=== PATIENT | male | born 1945 | race Caucasian/White ===

== ENCOUNTER 2022-08-21 01:47 | Observation (INO) | payer OTHER, SELFPAY ==
[2022-08-21] VITALS (36 sets, daily range): BP systolic 92–143; BP diastolic 40–78; PULSE 74–101; RESP 2–95; TEMP 36.7–37.4; O2SAT 91–99; BMI 27.1; BMI 28.6; BMI 28.9
--- NOTE | 2022-08-21 02:03 | ED.CHESTPAI1 ---
HPI - Chest Pain General Chief Complaint: Chest Pain Stated Complaint: CHEST PAIN, N&V Time Seen by Provider: 08/21/22 01:58 Source: patient Mode of arrival: ambulance Limitations: no limitations History of Present Illness HPI narrative: arrives complaining of chest pain and nausea/vomiting that started 2 hours ago. Describes chest pain as tightness. No known history of heart disease. Denies similar episodes of chest pain. States when he called 911 he was also short of breath. Related Data Home Medications Medication Instructions Recorded Confirmed atorvastatin 20 mg tablet 20 mg PO ONCE 08/21/22 08/21/22 celecoxib 200 mg capsule 200 mg PO Q24H 08/21/22 08/21/22 fluticasone 250 mcg-salmeterol 50 1 inh inhalation Q12H 08/21/22 08/21/22 mcg/dose blistr powdr for inhalation (Advair Diskus) gabapentin 600 mg tablet 600 mg PO Q8H 08/21/22 08/21/22 gabapentin 800 mg tablet 800 mg PO .Q8HR 08/21/22 08/21/22 losartan 100 1 tab PO ONCE 08/21/22 08/21/22 mg-hydrochlorothiazide 25 mg tablet metoprolol succinate 100 mg 100 mg PO QDAY 08/21/22 08/21/22 tablet,extended release 24 hr montelukast 10 mg tablet 10 mg PO QDAY 08/21/22 08/21/22 omeprazole 40 mg capsule,delayed 40 mg PO QDAY 08/21/22 08/21/22 release Allergies Allergy/AdvReac Type Severity Reaction Status Date / Time Penicillins Allergy Unknown Verified 08/21/22 01:54 Review of Systems ROS Status of ROS 10 or more systems reviewed and unremarkable except as noted in history and below Cardiovascular Reports: chest pain Gastrointestinal Reports: nausea and vomiting PFSH PFSH Social History Smoking status: Former smoker Exam Constitutional Vital Signs - 24 hr 08/21/22 01:50 08/21/22 01:53 08/21/22 05:54 Temperature 99.3 F Pulse Rate 100 H 92 H Pulse Rate [Monitor] 101 H Respiratory Rate 18 22 19 Blood Pressure 143/76 H 92/70 Blood Pressure [Right Arm] 143/76 H Pulse Oximetry 99 Oxygen Delivery Method Room Air Common normals: no apparent distress, average body habitus and oriented x3 HENMT Common normals: normocephalic and head/scalp atraumatic Eye Common normals: EOMs intact bilaterally Respiratory Common normals: normal respiratory effort, no retractions, no use of accessory muscles and clear to auscultation bilaterally Cardio Common normals: regular rate, regular rhythm, S1 normal heart sound and S2 normal heart sound GI Common normals: Normal to inspection, nondistended, normoactive bowel sounds present, soft to palpation and non-tender Extremity Common normals: normal to inspection, full ROM and normal capillary refill Neuro Common normals: oriented x3 and gait normal Psych Appearance: grossly normal Course Vital Signs Vital signs: Vital Signs Temperature 99.3 F 08/21/22 01:50 Pulse Rate 101 H 08/21/22 01:50 Respiratory Rate 18 08/21/22 01:50 Blood Pressure 143/76 H 08/21/22 01:50 Pulse Oximetry 99 08/21/22 01:50 Oxygen Delivery Method Room Air 08/21/22 01:50 Temperature 99.3 F 08/21/22 01:50 Pulse Rate 92 H 08/21/22 05:54 Respiratory Rate 19 08/21/22 05:54 Blood Pressure 92/70 08/21/22 05:54 Pulse Oximetry 99 08/21/22 01:50 Oxygen Delivery Method Room Air 08/21/22 01:50 MDM - Chest Pain MDM Narrative Medical decision making narrative: 76 yo male hypertensive, hyperlipidemia presents after acute onset of chest tightness,nausea and vomiting and shortness of breath. Arrived via Squad. symptoms started about 2 hours prior to coming to the department. Now that he is here they have abated. No known history of heart disease. EKG NSR without acute changes. Troponin neg. D-dimer pending. CBC and BMP WNL. Cxray with pulmonary vascular congestion. Discussed with Dr Nielsen and patient accepted for admission Lab Data Labs: Lab Results 08/21/22 Range/Units 01:58 WBC 8.4 (4.0-11.0) 10^3/uL RBC 4.74 (4.70-6.10) 10^6/uL Hgb 14.7 (14.0-18.0) g/dL Hct 44.6 (42.0-54.0) % MCV 94.1 H (80.0-94.0) fL MCH 31.0 (25.9-34.0) pg MCHC 33.0 (29.9-35.2) g/dL RDW 14.0 (11.0-15.0) % Plt Count 310 (150-450) 10^3/uL MPV 9.8 (9.5-13.5) fL Neut % (Auto) 93.4 H (43.0-75.0) % Lymph % (Auto) 4.3 L (20.5-60.0) % [place] % (Auto) 1.4 L (1.7-12.0) % Eos % (Auto) 0.1 L (0.9-7.0) % Baso % (Auto) 0.4 (0.2-2.0) % Neut # (Auto) 7.9 H (1.4-6.5) 10^3/uL Lymph # (Auto) 0.4 L (1.2-3.8) 10^3/uL [place] # (Auto) 0.1 L (0.3-0.8) 10^3/uL Eos # (Auto) 0.0 (0.0-0.7) 10^3/uL Baso # (Auto) 0.0 (0.0-0.1) 10^3/uL Abs Immat Gran (auto) 0.03 (0.00-0.03) 10^3/uL Imm/Tot Granulo (auto) 0.4 (0.0-0.5) % Sodium 141 (136-145) mmol/L Potassium 4.1 (3.5-5.1) mmol/L Chloride 104 (98-107) mmol/L Carbon Dioxide 29.1 (21.0-32.0) mmol/L Anion Gap 12.0 BUN 21.0 H (7.0-18.0) mg/dL Creatinine 1.11 (0.70-1.30) mg/dL Est GFR ( Amer) >60 (>=60) Est GFR (Non-Af Amer) >60 (>=60) BUN/Creatinine Ratio 18.9 Glucose 129 H (74-106) mg/dL Calcium 9.1 (8.5-10.1) mg/dL Troponin I High Sens <4.0 L (4.0-76.1) pg/mL NT-Pro-B Natriuret Pep 148.0 (<=1800.0) pg/mL Discharge Plan Discharge Chief Complaint: Chest Pain Clinical Impression: Congestive heart failure, Chest pain Patient Disposition: Admitted as Observation
--- NOTE | 2022-08-21 02:05 | XR_ITS ---
The [address] [address] Patient Name: LUIS ANTHONY MRN: [id number] date: 1945 Sex: M Assigned Patient Location: ER Current Patient Location: ED.MAIN Accession/Order Number: [id number] Exam Date: 08/21/2022 02:10 Report Date: 08/21/2022 04:48 At the request of: JAMIR DASH Procedure: XR chest 1V EXAM: XR chest 1V 08/21/2022 2:10 AM EDT OH001 CLINICAL STATEMENT: chest pain COMPARISON: No prior studies are available at the time of dictation. TECHNIQUE: Single AP radiograph of the chest is submitted. FINDINGS: There is pulmonary vascular congestion with left lower lobe atelectasis and/or airspace disease. Enlarged cardiac silhouette. Decreased lung volume. The costophrenic recesses are sharp. No pneumothorax. The bony elements are unremarkable. IMPRESSION: Pulmonary vascular congestion with left lower lobe atelectasis and/or airspace disease. Enlarged cardiac silhouette. Decreased lung volume. Electronically authenticated by: MICHELLE AZAR Date: 08/21/2022 04:48
--- NOTE | 2022-08-21 02:05 | ECG_ITS ---
The [facility] Test Date: 2022-08-21 Pat Name: LUIS ANTHONY Department: Room: - Gender: Male Environmental Compliance Technician: : 1945 Requested By: DOMO BARRIENTOS Order Number: [id number] Reading MD: DOMO BARRIENTOS Measurements Intervals [place] Rate: 91 P: 56 NH: 192 QRS: 30 QRSD: 92 T: 51 QT: 322 QTc: 371 Interpretive Statements 1100 Sinus rhythm 9110 normal ECG No previous ECG available for comparison Electronically Signed On 08-21-2022 6:34:56 EDT by DOMO BARRIENTOS
--- NOTE | 2022-08-21 02:12 | PC.NURSE ---
IV started per squad, present on admission
[2022-08-21 02:18] LABS: Basophils Percent Auto 0.4 % (0.2-2.0); Eosinophils Percent Auto 0.1 % (0.9-7.0); Hematocrit 44.6 % (42.0-54.0); Hemoglobin 14.7 g/dL (14.0-18.0); Immature Granulocytes Abs Auto 0.03 10^3/uL (0.00-0.03); Immature Granulocytes Pct Auto 0.4 % (0.0-0.5); Lymphocytes Absolute Auto 0.4 10^3/uL (1.2-3.8); Lymphocytes Percent Auto 4.3 % (20.5-60.0); Mean Corpuscular Volume 94.1 fL (80.0-94.0); Mean Platelet Volume 9.8 fL (9.5-13.5); Monocytes Absolute Auto 0.1 10^3/uL (0.3-0.8); Monocytes Percent Auto 1.4 % (1.7-12.0); Neutrophils Absolute Auto 7.9 10^3/uL (1.4-6.5); Neutrophils Percent Auto 93.4 % (43.0-75.0); Platelet Count 310 10^3/uL (150-450); Red Blood Count 4.74 10^6/uL (4.70-6.10); White Blood Count 8.4 10^3/uL (4.0-11.0)
[2022-08-21 03:03] LABS: BUN Creatinine Ratio 18.9; Calcium 9.1 mg/dL (8.5-10.1); Carbon Dioxide 29.1 mmol/L (21.0-32.0); Chloride 104 mmol/L (98-107); Estimated GFR (African America >60 (>=60); Estimated GFR (Non-African Ame >60 (>=60); Glucose 129 mg/dL (74-106); Potassium 4.1 mmol/L (3.5-5.1); Sodium 141 mmol/L (136-145); Troponin I High Sensitivity <4.0 pg/mL (4.0-76.1)
--- NOTE | 2022-08-21 07:37 | CA_ITS ---
Patient Name Site Name LUIS ANTHONY The [facility] Account No Medical Record Number Age Sex Date Time [id number] [facility]:[id number] M 08/21/2022 11:26 At the Request Of SHAIKH VINCE ECHOCARDIOGRAM REPORT PROCEDURE: CA ECHO DOPPLER COMPLETE INDICATIONS: CHEST PAIN COMPARISON: None. DESCRIPTION: COMPLETE ECHOCARDIOGRAM Real-time transthoracic echocardiography with 2D, M-mode, spectral and color flow Doppler performed. QUALITY: Technical quality was good. LEFT VENTRICLE: Normal chamber size. Thickened septal wall. Global left ventricular systolic function is normal. LV EF: Estimated left ventricular ejection fraction is 65%. DIASTOLIC: Normal diastolic function. ATRIAL SEPTUM: LEFT ATRIUM: Normal chamber size. RIGHT ATRIUM: Moderate dilatation. RIGHT VENTRICLE: Moderate dilatation. Normal right ventricular systolic function. TRICUSPID VALVE: Normal mobility and thickness. No stenosis with moderate regurgitation. No evidence of pulmonary hypertension. RVSP 31 mmHg MITRAL VALVE: Normal mobility and thickness. No evidence of mitral valve stenosis. There is no mitral annular calcification. Trivial mitral regurgitation. AORTIC VALVE: Normal trileaflet appearance. Thickened aortic valve. Normal leaflet mobility. No evidence of aortic valve stenosis. No aortic regurgitation. AORTIC ROOT: Normal diameter and appearance. PULMONIC VALVE: Normal thickness and mobility. No stenosis. Trivial regurgitation. PERICARDIUM: No evidence of pericardial effusion. IVC: Collapses with inspirations. Normal size. PLEURA: CONCLUSION: 1. Normal left ventricular systolic function. LVEF is 65%. 2. Moderately dilated right ventricle with normal systolic function. 3. Moderate right atrial dilatation. 4. Moderate tricuspid regurgitation. 5. Normal right-sided pressures. Adult Echocardiography Procedure Report Left Ventricle LVEDD (3.7 - 5.6 cm): 4.39 cm LVESD (2.2 - 4.0 cm): 2.86 cm LVIVS thickness (0.6 - 1.2 cm): 1.26 cm LVPW thickness (0.5 - 1.0 cm): 9.63 mm LVOT Max Gradient: 7 mm[Hg] Peak Velocity (LVOT): 128.00 cm/s Mean Velocity (LVOT): 85.90 cm/s LVOT Diameter 2.10 cm Left Ventricular Ejection Fraction: 65% Left Atrium LA Volume Index (2D A2C): 08220 mm3 Left Atrium Systolic Dimension: 4.00 cm Mitral Valve MV E to A Ratio: 1 Mitral Valve A-Wave Peak Velocity: 90.80 cm/s Mitral Valve E-Wave Peak Velocity: 91.80 cm/s Right Ventricle Aorta AO Root Diam: 3.30 cm Aortic Valve AoV Area (Peak Andrés): 3.03 cm2 AoV Area (VTI): 3.24 cm2 Peak Velocity(Antegrade Flow): 146.00 cm/s Peak Gradient(Antegrade Flow): 9 mm[Hg] Mean Velocity(Antegrade Flow): 89.30 cm/s Mean Gradient(Antegrade Flow): 4 mm[Hg] Velocity Time Integral: 29.30 cm Tricuspid Valve Peak Velocity (Regurgitant Flow): 265.00 cm/s Peak Velocity: 66.10 cm/s Pulmonic Valve Peak Velocity: 86.90 cm/s, 85.50 cm/s Peak Gradient: 3 mm[Hg] Right Atrium Dictated by: Yoseph Lewis M.D. on 08/21/2022 at 18:50 Approved by: Yoseph Lewis M.D. on 08/21/2022 at 18:56
--- NOTE | 2022-08-21 07:41 | CT_ITS ---
[address] [address] Patient Name: LUIS ANTHONY MRN: [id number] date: 1945 Sex: M Assigned Patient Location: ICU Current Patient Location: ICU Accession/Order Number: [id number] Exam Date: 08/21/2022 08:15 Report Date: 08/21/2022 09:20 At the request of: SHAIKH VINCE Procedure: CT angio chest EXAMINATION: CT angio chest HISTORY: SOB, elevated d dimer , chest pain, nausea and vomiting COMPARISON: No relevant comparison available. TECHNIQUE: Multi-planar CT images were created with IV contrast. Axial, Coronal, and Sagittal images. Dose reduction techniques were achieved by using automated exposure control and/or adjustment of mA and/or kV according to patient size and/or use of iterative reconstruction technique. 3-D reconstruction was performed on a separate workstation. FINDINGS: VASCULATURE: No pulmonary embolism or abnormal opacity. LUNGS: Mild emphysematous changes. No acute infiltrates. PLEURA: No mass, effusion, or pneumothorax. LUCAS: No mass or adenopathy. MEDIASTINUM: No mass or adenopathy. CARDIAC: No enlargement, pericardial effusion, or pericardial thickening. AORTA: No aneurysm or dissection. CHEST WALL: No mass or axillary adenopathy. BONES: No bone lesion or fracture. LIMITED ABDOMEN: Bilateral renal cysts. Sludge versus stones within gallbladder. OTHER: Negative. IMPRESSION: 1. No pulmonary embolism. 2. Mild emphysematous changes. No appreciable acute infiltrates. 3. Cholelithiasis. Electronically authenticated by: CORBIN ROWE Date: 08/21/2022 09:20
[2022-08-21] MEDS: ACETAMINOPHEN 325 MG TABLET PO (09:06)
[2022-08-21] MEDS: ATORVASTATIN CALCIUM 20 MG TABLET PO (09:06)
[2022-08-21 09:07] LABS: Troponin I High Sensitivity 10.7 pg/mL (4.0-76.1)
[2022-08-21] MEDS: OMEPRAZOLE 40 MG CAPSULE.DR PO (09:07)
[2022-08-21] MEDS: CELECOXIB 200 MG CAPSULE PO (09:07)
[2022-08-21] MEDS: METOPROLOL SUCCINATE 100 MG TAB.ER.24H PO (09:07)
[2022-08-21] MEDS: ENOXAPARIN SODIUM 40 MG/0.4 ML SYRINGE SUBQ (09:07)
[2022-08-21] MEDS: MONTELUKAST SODIUM 10 MG TABLET PO (09:07)
[2022-08-21] MEDS: GABAPENTIN 300 MG CAPSULE 600 MG PO ×2 (09:17→17:31)
[2022-08-21] MEDS: HYDROCHLOROTHIAZIDE 25 MG TABLET PO (09:17)
[2022-08-21] MEDS: LOSARTAN POTASSIUM 50 MG TABLET 100 MG PO (09:18)
[2022-08-21] MEDS: LACTATED RINGER'S SOLUTION 1,000 ML 100 ML IV (10:23)
[2022-08-21] MEDS: BUDESONIDE 0.5 MG/2 ML AMPULE NEB IH ×2 (11:53→20:02)
[2022-08-21] MEDS: ALBUTEROL SULFATE 2.5 MG/3 ML VIAL NEB IH ×3 (11:53→20:03)
--- NOTE | 2022-08-21 12:23 | CM.NOTE ---
Rounds made with Dr. Nielsen, discussed with pt about having stress test and echo today. Pt verbalizes understanding
--- NOTE | 2022-08-21 12:58 | PM.HP ---
H&P: HPI History of Present Illness Chief complaint: CHEST PAIN, N&V Narrative: 76 y o presented yesterday with acute onset chest pressure, mid sternal, associated with SOB, diaphoresis, dizziness and nausea with 2-3 episodes of vomiting while driving for work. He stopped his vehicle and called EMS because of the severity of his pain. He was evaluated in ED and so far his w/u is unremarkable. His pain resolved in ED after initial treatment. He had one episode of similar pain but of less severity that resolved on its own. He reports intermittent chest pain over a period of past few months that is sporadic and has no aggravating or alleviating factors. No relationship to exertion or food intake. No prior hx of CAD or testing for for CAD. He has hx of HTN, is a prediabetic and HLD. He is a fomer smoker - quit 20 years ago and has no sig Fhx of CAD. He also reports hx of GERD and surgery for it. He has noticed metallic taste in his mouth lately. Denies abdominal pain, change in bowel habits. He is currently CP free. Review of Systems ROS Status of ROS 10 or more systems reviewed and unremarkable except as noted in history and below [facility] Medical History (Updated 08/21/22 @ 13:14 by Shaikh Morales MD) Social History Smoking status: Former smoker Meds Home Medications and Allergies Home Medications Medication Instructions Recorded Confirmed Type atorvastatin 20 mg tablet 20 mg PO ONCE 08/21/22 08/21/22 History celecoxib 200 mg capsule 200 mg PO Q24H 08/21/22 08/21/22 History fluticasone 250 mcg-salmeterol 50 1 inh inhalation Q12H 08/21/22 08/21/22 History mcg/dose blistr powdr for inhalation (Advair Diskus) gabapentin 600 mg tablet 600 mg PO Q8H 08/21/22 08/21/22 History gabapentin 800 mg tablet 800 mg PO .Q8HR 08/21/22 08/21/22 History losartan 100 1 tab PO ONCE 08/21/22 08/21/22 History mg-hydrochlorothiazide 25 mg tablet metoprolol succinate 100 mg 100 mg PO QDAY 08/21/22 08/21/22 History tablet,extended release 24 hr montelukast 10 mg tablet 10 mg PO QDAY 08/21/22 08/21/22 History omeprazole 40 mg capsule,delayed 40 mg PO QDAY 08/21/22 08/21/22 History release Allergies Allergy/AdvReac Type Severity Reaction Status Date / Time Penicillins Allergy Unknown Verified 08/21/22 01:54 Exam Constitutional Vital Signs - 24 hr 08/21/22 01:50 08/21/22 01:53 08/21/22 05:54 Temperature 99.3 F Pulse Rate 100 H 92 H Pulse Rate [Monitor] 101 H Respiratory Rate 18 22 19 Blood Pressure 143/76 H 92/70 Blood Pressure [Right Arm] 143/76 H Pulse Oximetry 99 Oxygen Delivery Method Room Air 08/21/22 05:54 08/21/22 06:34 08/21/22 07:23 Temperature Pulse Rate 95 H 96 H Pulse Rate [Monitor] 84 Respiratory Rate 19 13 16 Blood Pressure 92/70 104/66 Blood Pressure [Right Arm] Pulse Oximetry 92 L 95 Oxygen Delivery Method Room Air 08/21/22 07:37 08/21/22 07:37 08/21/22 07:06 Temperature 98.1 F 98.2 F Pulse Rate 84 84 Pulse Rate [Monitor] Respiratory Rate 16 Blood Pressure Blood Pressure [Right Arm] 122/71 H Pulse Oximetry 95 Oxygen Delivery Method Room Air 08/21/22 06:43 08/21/22 10:24 08/21/22 10:25 Temperature Pulse Rate Pulse Rate [Monitor] Respiratory Rate Blood Pressure 122/71 H 99/59 L Blood Pressure [Right Arm] Pulse Oximetry 94 L 91 L 97 Oxygen Delivery Method 08/21/22 10:25 08/21/22 10:25 08/21/22 11:23 Temperature Pulse Rate Pulse Rate [Monitor] Respiratory Rate 16 Blood Pressure 99/59 L Blood Pressure [Right Arm] Pulse Oximetry 93 L 91 L Oxygen Delivery Method 08/21/22 11:59 Temperature Pulse Rate Pulse Rate [Monitor] Respiratory Rate Blood Pressure Blood Pressure [Right Arm] Pulse Oximetry 92 L Oxygen Delivery Method Room Air Documenting provider has reviewed patient's vital signs: yes Common normals: no apparent distress General appearance: cooperative, comfortable and well kempt [facility] Common normals: normocephalic and head/scalp atraumatic Eye Common normals: conjunctivae normal and no scleral icterus Chest Common normals: inspection of chest normal and palpation of chest normal Respiratory Common normals: normal respiratory effort, no use of accessory muscles and clear to auscultation bilaterally GI Common normals: Normal to inspection, nondistended, normoactive bowel sounds present, non-tender and no hepatosplenomegaly Extremity Common normals: normal to inspection and full ROM Neuro Common normals: oriented x3, moves all extremities, no focal motor deficits and no sensory deficits noted Psych Common normals: mental status grossly normal, thought process normal, cooperative, denies homicidal ideation and denies suicidal ideation Results Labs Labs: Short CBC 08/21/22 Range/Units 01:58 WBC 8.4 (4.0-11.0) 10^3/uL Hgb 14.7 (14.0-18.0) g/dL Hct 44.6 (42.0-54.0) % Plt Count 310 (150-450) 10^3/uL BMP 08/21/22 01:58 Sodium 141 Potassium 4.1 Chloride 104 Carbon Dioxide 29.1 BUN 21.0 H Creatinine 1.11 Glucose 129 H Calcium 9.1 Assessment and Plan Assessment and Plan (1) Chest pain: Assessment and Plan: Intermittent, ongoing for a few weeks now. Non exertional, no relationship to food. Normal EKG, Normal Trops. HEART score - 4 2D ECHO ordered to assess cardiac structure Because of his risk factors, clinical presentation - will order Nuclear stress test for the patient. Patient is unable to exercise on a treadmill due to back pain and hence won't be able to achieve target HR. (2) HTN (hypertension): Assessment and Plan: Too tightly controlled. C/w Lopressor and Losartan. D/c HCTZ as too tightly controlled Qualifiers: Hypertension type: primary hypertension Qualified Code(s): I10 - Essential (primary) hypertension (3) HLD (hyperlipidemia): Assessment and Plan: c/w statin. Check Lipid panel Qualifiers: Hyperlipidemia type: unspecified Qualified Code(s): E78.5 - Hyperlipidemia, unspecified (4) Chronic low back pain: Assessment and Plan: Chronic, unchanged. on Gabapentin for it Qualifiers: Back pain laterality: bilateral Sciatica presence: with sciatica Sciatica laterality: sciatica laterality unspecified Qualified Code(s): M54.40 - Lumbago with sciatica, unspecified side; G89.29 - Other chronic pain (5) Prediabetes: Assessment and Plan: Check A1C (6) Emphysema lung: Assessment and Plan: On symbicort as outpatient. [place]abble. No active wheezing currently Qualifiers: Emphysema type: unspecified Qualified Code(s): J43.9 - Emphysema, unspecified (7) Cholelithiasis: Assessment and Plan: Noted on CTA chest. No abdominal pain. Likely incidental and can be followed up outpatient (8) GERD (gastroesophageal reflux disease): Assessment and Plan: On omeprazole and possibly contributing to his symptoms if his presentation is not due to underlying CAD. Outpatient GI w/u
--- NOTE | 2022-08-21 13:00 | NM_ITS ---
Patient: LUIS ANTHONY Exam Date: 08/21/2022 : 1945 Gender:M Ordering : SHAIKH Fran CLARKE . Admission #: [id number] Family : Order #: [id number] CLICK HERE TO VIEW EXAM RADIOLOGY REPORT PROCEDURE: NM ENID PERF SPECT REST STR COMPARISON: None. INDICATIONS: Chest pain TECHNIQUE: Exam Description: Stress/Rest one day protocol gated SPECT Rest Imagin.1 mCi Tc-99m Cardiolite IV on 08/21/2022 Stress Imaging 30.8 mCi Tc-99m Cardiolite IV on 08/21/2022 Exercise Protocol: 0.4 mg Lexiscan given IV Heart Rate (bpm): Rest: 79 Max: 93 PMHR: 64 Blood Pressure: Rest: 112/66 Max: 116/68 Symptoms: Rest and peak stress ECG findings were normal and the exercise portion of the study was normal per attending physician Dr. Mead . For more details please see separate cardiac stress test report. FINDINGS: QUALITY OF STUDY: Excellent. PERFUSION DEFECT: Slightly decreased perfusion inferior and septal wall; stable during rest and stress imaging and suspected to be secondary to liver/diaphragm attenuation artifact. WALL MOTION: Normal. LV SIZE: Normal. 79 mL. TID / TCD: Upper limits of normal; 1.2 LVEF: Normal. Calculated EF 75%. SUMMARY: Myocardial perfusion imaging study is NORMAL. CONCLUSION: 1. No acute or reversible ischemia. 2. Normal wall motion, left ventricle volume, and ejection fraction. Dictated by: Chidi Law M.D. on 08/22/2022 at 09:43 Approved by: Chidi Law M.D. on 08/22/2022 at 09:54
[2022-08-21] MEDS: REGADENOSON 0.4 MG/5 ML SYRINGE IV (14:17)
--- NOTE | 2022-08-21 17:18 | PM.STRESS ---
Stress Test Stress Test Allergies Allergy/AdvReac Type Severity Reaction Status Date / Time Penicillins Allergy Unknown Verified 08/21/22 01:54 Requesting physician: Shaikh Morales Procedure: Lexiscan Cardiolite stress test General Information: Reason for Stress Test: Chest pain Cardiac History and Risk Factors: Former smoker. Grandmother had CHF. Resting 12 - Lead Electrocardiogram: Normal sinus rhythm with HR 79. Normal axis. Normal T waves and ST segments. Stress Test: Protocol: Lexiscan Blood Pressure Response: Resting 112/66, max 116/68 Rhythm: Remained in NSR with max HR 93, which is 64% max predicted heart rate. Isolated PACs. ST - Response: No change from baseline. Patient Response: No reproducible chest pain. Interpretation: Normal Lexiscan stress test. Cardiolite interpretation will be reported separately.
[2022-08-21] MEDS: ATORVASTATIN CALCIUM 40 MG TABLET 20 MG PO (21:55)
[2022-08-22] VITALS (31 sets, daily range): BP systolic 88–145; BP diastolic 41–91; PULSE 70–113; RESP 0–27; TEMP 36.6–36.7; O2SAT 90–96
[2022-08-22] MEDS: GABAPENTIN 300 MG CAPSULE 600 MG PO ×2 (00:44→08:16)
[2022-08-22] MEDS: ALBUTEROL SULFATE 2.5 MG/3 ML VIAL NEB IH ×2 (04:00→11:07)
[2022-08-22 04:45] LABS: Alanine Aminotransferase 307 U/L (16-63); Albumin Globulin Ratio 1.1; Alkaline Phosphatase 166 U/L (46-116); Anion Gap 13.9; Aspartate Amino Transferase 176 U/L (15-37); BUN Creatinine Ratio 20.8; Bilirubin Total 3.4 mg/dL (0.2-1.0); Calcium 8.3 mg/dL (8.5-10.1); Carbon Dioxide 25.7 mmol/L (21.0-32.0); Chloride 104 mmol/L (98-107); Estimated GFR (African America >60 (>=60); Estimated GFR (Non-African Ame 56 (>=60); Globulin 2.8 g/dL; Glucose 127 mg/dL (74-106); Potassium 3.6 mmol/L (3.5-5.1); Sodium 140 mmol/L (136-145); Total Protein 5.8 g/dL (6.4-8.2)
[2022-08-22] MEDS: LOSARTAN POTASSIUM 50 MG TABLET 100 MG PO (08:04)
[2022-08-22] MEDS: CELECOXIB 200 MG CAPSULE PO (08:04)
[2022-08-22] MEDS: MONTELUKAST SODIUM 10 MG TABLET PO (08:04)
[2022-08-22] MEDS: OMEPRAZOLE 40 MG CAPSULE.DR PO (08:05)
[2022-08-22] MEDS: ENOXAPARIN SODIUM 40 MG/0.4 ML SYRINGE SUBQ (08:05)
[2022-08-22] MEDS: METOPROLOL SUCCINATE 100 MG TAB.ER.24H PO (08:05)
[2022-08-22 08:15] LABS: Estimated Average Glucose 103 mg/dL; Glycohemoglobin A1C 5.2 % (4.5-6.2)
[2022-08-22 08:16] LABS: Cholesterol 89 mg/dL (<=200); HDL Cholesterol 30 mg/dL (40-60); Triglycerides 71 mg/dL (<=150); VLDL CHOLESTEROL 14.2 mg/dL
[2022-08-22] MEDS: BUDESONIDE 0.5 MG/2 ML AMPULE NEB IH (11:07)
--- NOTE | 2022-08-22 11:36 | PM.DS1 ---
DS: Providers Provider Date of admission: 08/21/22 06:41 Primary care physician: Non-Staff Physician, Admitting clinician: Shaikh Morales Attending physician on admission: Shaikh Morales Attending physician on discharge: Shaikh Morales Discharging clinician: Shaikh Morales Anticipated date of discharge: 08/22/22 DS: Diagnosis Discharge Diagnosis (1) Chest pain: Assessment and plan: Normal EKG, negative Troponin 2D ECHO showed normal EF, no WMA. Mod MR seen. No sig structural abnormality otherwise. Normal nuclear stress test. Likely non cardiac and most likely due to GERD. (2) HTN (hypertension): Assessment and plan: C/w home meds. Too tightly controlled. Recommended outpatient f/u with PCP Qualifiers: Hypertension type: primary hypertension Qualified Code(s): I10 - Essential (primary) hypertension (3) HLD (hyperlipidemia): Assessment and plan: C/w statin Qualifiers: Hyperlipidemia type: unspecified Qualified Code(s): E78.5 - Hyperlipidemia, unspecified (4) Chronic low back pain: Assessment and plan: Chronic. On gabapentin. No neurological weakness. Qualifiers: Back pain laterality: bilateral Sciatica presence: with sciatica Sciatica laterality: sciatica laterality unspecified Qualified Code(s): M54.40 - Lumbago with sciatica, unspecified side; G89.29 - Other chronic pain (5) Prediabetes: Assessment and plan: Lifestyle measures (6) Emphysema lung: Assessment and plan: Chronic. Stable. No active wheezing or bronchospasm on exam Qualifiers: Emphysema type: unspecified Qualified Code(s): J43.9 - Emphysema, unspecified (7) Cholelithiasis: Assessment and plan: Incidental finding. No abd pain, nausea or vomiting. Outpatient f/u (8) GERD (gastroesophageal reflux disease): Assessment and plan: Poorly controlled symptoms. 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 C/w Omeprazole. Outpatient F/u with GI and possible endoscopy (9) Moderate mitral regurgitation: Assessment and plan: Found on ECHO. Asymptomatic. Outpatient f/u and monitoring. DS: Summary Hospital Course Hospital Course: Patient admitted for chest pain r/o ACS. Negative Trop, normal EKG. Normal Lexiscan. Remained asymptomatic. 2D ECHO shows normal EF, No WMA and mod MR. No events on tele. Stable for discharge Status at Discharge Overall status at discharge: patient is back to baseline Time Spent with Patient Time attestation: Total time spent providing and/or coordinating discharge services: Time spent: greater than 30 minutes Exam Constitutional Vital Signs - 24 hr 08/21/22 11:59 08/21/22 13:25 08/21/22 14:59 Temperature Pulse Rate 84 Pulse Rate [Monitor] Respiratory Rate 16 Blood Pressure Blood Pressure [Right Arm] Pulse Oximetry 92 L 92 L Oxygen Delivery Method Room Air 08/21/22 14:59 08/21/22 13:12 08/21/22 15:07 Temperature Pulse Rate 84 Pulse Rate [Monitor] Respiratory Rate Blood Pressure 118/64 116/78 Blood Pressure [Right Arm] Pulse Oximetry 92 L Oxygen Delivery Method 08/21/22 16:06 08/21/22 16:10 08/21/22 16:27 Temperature Pulse Rate 78 78 Pulse Rate [Monitor] Respiratory Rate 95 H Blood Pressure Blood Pressure [Right Arm] Pulse Oximetry 95 Oxygen Delivery Method Room Air 08/21/22 16:53 08/21/22 18:12 08/21/22 20:02 Temperature Pulse Rate 78 74 Pulse Rate [Monitor] Respiratory Rate 95 H 16 Blood Pressure Blood Pressure [Right Arm] Pulse Oximetry 95 94 L Oxygen Delivery Method Room Air 08/21/22 20:02 08/21/22 20:08 08/21/22 20:39 Temperature Pulse Rate 77 77 Pulse Rate [Monitor] Respiratory Rate 18 Blood Pressure Blood Pressure [Right Arm] Pulse Oximetry 94 L 96 Oxygen Delivery Method Room Air 08/21/22 22:00 08/22/22 04:00 08/22/22 04:00 Temperature Pulse Rate 81 90 Pulse Rate [Monitor] Respiratory Rate 18 Blood Pressure Blood Pressure [Right Arm] Pulse Oximetry 94 L Oxygen Delivery Method 08/22/22 04:00 08/22/22 00:15 08/22/22 00:16 Temperature 98 F Pulse Rate 80 71 Pulse Rate [Monitor] Respiratory Rate 18 18 Blood Pressure Blood Pressure [Right Arm] 145/91 H Pulse Oximetry 90 L Oxygen Delivery Method Room Air 08/22/22 06:31 08/22/22 04:00 08/22/22 04:12 Temperature Pulse Rate 99 H 90 96 H Pulse Rate [Monitor] Respiratory Rate 18 Blood Pressure Blood Pressure [Right Arm] Pulse Oximetry 90 L 94 L Oxygen Delivery Method 08/21/22 15:07 08/21/22 18:47 08/21/22 19:00 Temperature Pulse Rate 76 75 Pulse Rate [Monitor] Respiratory Rate 17 2 L Blood Pressure 116/78 Blood Pressure [Right Arm] Pulse Oximetry Oxygen Delivery Method 08/21/22 19:30 08/21/22 19:58 08/21/22 19:58 Temperature Pulse Rate 77 77 Pulse Rate [Monitor] Respiratory Rate 19 10 L Blood Pressure 95/40 L Blood Pressure [Right Arm] Pulse Oximetry Oxygen Delivery Method 08/21/22 20:00 08/21/22 20:30 08/21/22 21:00 Temperature Pulse Rate 77 86 85 Pulse Rate [Monitor] Respiratory Rate 15 22 21 Blood Pressure Blood Pressure [Right Arm] Pulse Oximetry Oxygen Delivery Method 08/21/22 21:30 08/21/22 22:00 08/21/22 22:30 Temperature Pulse Rate 87 87 85 Pulse Rate [Monitor] Respiratory Rate 17 9 L 27 H Blood Pressure Blood Pressure [Right Arm] Pulse Oximetry Oxygen Delivery Method 08/21/22 23:00 08/21/22 23:30 08/22/22 00:00 Temperature Pulse Rate 87 87 89 Pulse Rate [Monitor] Respiratory Rate 20 20 6 L Blood Pressure Blood Pressure [Right Arm] Pulse Oximetry Oxygen Delivery Method 08/22/22 00:30 08/22/22 00:43 08/22/22 00:43 Temperature Pulse Rate 87 93 H Pulse Rate [Monitor] Respiratory Rate 8 L 12 Blood Pressure 88/41 L Blood Pressure [Right Arm] Pulse Oximetry Oxygen Delivery Method 08/22/22 00:43 08/22/22 01:00 08/22/22 01:30 Temperature Pulse Rate 86 88 Pulse Rate [Monitor] Respiratory Rate 19 20 Blood Pressure 88/41 L Blood Pressure [Right Arm] Pulse Oximetry Oxygen Delivery Method 08/22/22 02:00 08/22/22 02:30 08/22/22 03:00 Temperature Pulse Rate 87 81 86 Pulse Rate [Monitor] Respiratory Rate 20 0 L 1 L Blood Pressure Blood Pressure [Right Arm] Pulse Oximetry Oxygen Delivery Method 08/22/22 03:30 08/22/22 04:00 08/22/22 04:06 Temperature Pulse Rate 88 96 H Pulse Rate [Monitor] Respiratory Rate 4 L 17 Blood Pressure 103/61 Blood Pressure [Right Arm] Pulse Oximetry Oxygen Delivery Method 08/22/22 04:06 08/22/22 04:06 08/22/22 04:30 Temperature Pulse Rate 94 H 101 H Pulse Rate [Monitor] Respiratory Rate 14 18 Blood Pressure 103/61 Blood Pressure [Right Arm] Pulse Oximetry Oxygen Delivery Method 08/22/22 07:51 08/22/22 07:51 08/22/22 05:00 Temperature Pulse Rate 72 101 H Pulse Rate [Monitor] 74 Respiratory Rate 21 Blood Pressure Blood Pressure [Right Arm] Pulse Oximetry Oxygen Delivery Method 08/22/22 05:30 08/22/22 06:00 08/22/22 06:30 Temperature Pulse Rate 98 H 98 H 96 H Pulse Rate [Monitor] Respiratory Rate 20 19 20 Blood Pressure Blood Pressure [Right Arm] Pulse Oximetry Oxygen Delivery Method 08/22/22 07:00 08/22/22 07:30 08/22/22 07:36 Temperature 98.1 F Pulse Rate 95 H 91 H 113 H Pulse Rate [Monitor] Respiratory Rate 22 13 27 H Blood Pressure 125/78 H Blood Pressure [Right Arm] Pulse Oximetry 95 Oxygen Delivery Method 08/22/22 07:45 08/22/22 10:00 08/22/22 11:07 Temperature Pulse Rate 74 80 Pulse Rate [Monitor] Respiratory Rate Blood Pressure 125/78 H Blood Pressure [Right Arm] Pulse Oximetry 96 Oxygen Delivery Method 08/22/22 07:45 08/22/22 11:08 08/22/22 11:10 Temperature Pulse Rate Pulse Rate [Monitor] Respiratory Rate Blood Pressure 125/78 H 90/52 L Blood Pressure [Right Arm] Pulse Oximetry 96 Oxygen Delivery Method Room Air 08/22/22 11:24 Temperature Pulse Rate 95 H Pulse Rate [Monitor] Respiratory Rate Blood Pressure Blood Pressure [Right Arm] Pulse Oximetry Oxygen Delivery Method Documenting provider has reviewed patient's vital signs: yes Common normals: no apparent distress General appearance: cooperative, comfortable and well kempt HENAL Common normals: normocephalic and head/scalp atraumatic Eye Common normals: conjunctivae normal and no scleral icterus Chest Common normals: inspection of chest normal and palpation of chest normal Respiratory Common normals: normal respiratory effort, no use of accessory muscles and clear to auscultation bilaterally GI Common normals: Normal to inspection, nondistended, normoactive bowel sounds present, non-tender and no hepatosplenomegaly Extremity Common normals: normal to inspection and full ROM Neuro Common normals: oriented x3, moves all extremities, no focal motor deficits and no sensory deficits noted Psych Common normals: mental status grossly normal, thought process normal, cooperative, denies homicidal ideation and denies suicidal ideation DS: Data Data Completed and Pending Labs on day of discharge: Labs from last 24 hours 08/22/22 04:10 Sodium 140 Potassium 3.6 Chloride 104 Carbon Dioxide 25.7 Anion Gap 13.9 BUN 26.0 H Creatinine 1.25 Est GFR ( Amer) >60 Est GFR (Non-Af Amer) 56 L BUN/Creatinine Ratio 20.8 Glucose 127 H Estimat Average Glucose 103 Hemoglobin A1c 5.2 Calcium 8.3 L Total Bilirubin 3.4 H AST 176 H ALT 307 H Alkaline Phosphatase 166 H Total Protein 5.8 L Albumin 3.0 L Globulin 2.8 Albumin/Globulin Ratio 1.1 Triglycerides 71 Cholesterol 89 LDL Cholesterol, Calc 45.0 VLDL Cholesterol 14.2 HDL Cholesterol 30 L Cholesterol/HDL Ratio 3.0 Discharge Plan Discharge Disposition: Home, Self-Care Discharge Medications: Continued atorvastatin 20 mg tablet 20 mg PO ONCE celecoxib 200 mg capsule 200 mg PO Q24H fluticasone propion-salmeterol [Advair Diskus] 250-50 mcg/dose blister with device 1 inh inhalation Q12H gabapentin 600 mg tablet 600 mg PO Q8H gabapentin 800 mg tablet 800 mg PO .Q8HR losartan-hydrochlorothiazide 100-25 mg tablet 1 tab PO ONCE metoprolol succinate 100 mg tablet extended release 24 hr 100 mg PO QDAY montelukast 10 mg tablet 10 mg PO QDAY omeprazole 40 mg capsule,delayed release(DR/EC) 40 mg PO QDAY Activity: resume usual activities as tolerated Diet: low salt diet Forms: Portal Instructions Follow Up Appointments: PCP in one week GI for GERD and possible EGD
--- NOTE | 2022-08-22 12:09 | SWNOTE1 ---
Pt was in need of ride back to his truck. SW set up trips and they will be here at 1:30 to transport.
--- NOTE | 2022-08-22 12:16 | CM.NOTE ---
Rounds made with nicole Mchugh for discharge to home today. No discharge needs identified. Pt will need transport set-up to get to his vehicle located on [address] SW will contact transport.
--- NOTE | 2022-08-27 09:46 | CM.DCFOLLOWU ---
Person spoke with:patient How are you feeling? felling groggy, good day then bad day How is your pain? fluctuates Did you understand your discharge instructions? yes Do you have any questions about your discharge instructions? no Were you given any prescriptions at discharge? no Were you able to get your prescriptions filled? Do you understand how to take your medications as ordered? yes Do you have any questions about your follow up appointment and do you plan to keep your follow up appointment? No questions, but patient has not scheduled follow up with PCP or GI doctor at this time, Advised to make those calls Is there anything else that you would like to discuss? No Questions/Comments/Concerns/Other:
== END 2022-08-22 13:35 | disposition home or self-care (01) ==
LOC: ER 06:37 → ICU 06:41
PROVIDERS: Admitting Provider Internal Medicine; Emergency Provider Internal Medicine; Visit Provider Internal Medicine
DX: R07.9 Chest pain, unspecified (principal); I10 Essential (primary) hypertension; E78.5 Hyperlipidemia, unspecified; G89.29 Other chronic pain; M54.40 Lumbago with sciatica, unspecified side; R73.03 Prediabetes; J43.9 Emphysema, unspecified; K80.20 Calculus of gallbladder without cholecystitis without obstruction; K21.9 Gastro-esophageal reflux disease without esophagitis; I34.0 Nonrheumatic mitral (valve) insufficiency; Z79.899 Other long term (current) drug therapy; Z87.891 Personal history of nicotine dependence; R06.02 Shortness of breath
CPT/HCPCS: 36415; 71045; 71275; 78452; 80048; 80053; 80061; 83036; 83880; 84484; 85025; 85378; 93005; 93017; 93306; 94640; 94761; 96372; 99285; A9500; G0378; J2785; Q9967